=== PATIENT | female | born 1945 | race Caucasian/White ===

== ENCOUNTER 2016-11-05 22:53 | Emergency (ER) | payer MEDICARE, OTHER ==
[2016-11-06 00:26] VITALS: BP 159/88
== END 2016-11-06 00:26 | disposition home or self-care (01) ==
LOC: ED 22:53
DX: M70.52 Other bursitis of knee, left knee (principal); I10 Essential (primary) hypertension; E78.5 Hyperlipidemia, unspecified; M81.0 Age-related osteoporosis without current pathological fracture; Y93.89 Activity, other specified